=== PATIENT | male | born 1955 | race Caucasian/White ===

== ENCOUNTER 2023-12-18 16:19 | Emergency (ER) | payer OTHER ==
[2023-12-18 16:55] LABS: Bilirubin Negative (Negative); Blood, Urine Trace (Negative); Clarity Clear (Clear); Glucose, Urine (Dipstick) Negative (Negative); Ketone, Urine Negative (Negative); Leukocyte Negative (Negative); Nitrite Negative (Negative); Protein, Urine (Dipstick) Negative (Neg-Trace); Urobilinogen 0.2 mg/dL (Less than 2)
[2023-12-18 17:07] LABS: CAUTI Indications for Culture Dysuria,urgency,freq; RBC/HPF 0-3 HPF (0-3); Urine Culture Reflex No No; WBC/HPF 0-3 HPF (0-3)
[2023-12-18] MEDS ORDERED: Sulfameth/Trimethoprim DS 800-160mg TAB ONE (18:10)
[2023-12-18] MEDS ORDERED: Tamsulosin HCl 0.4 MG CAP ONE (18:10)
== END 2023-12-18 18:20 ==
LOC: NAV ERS 16:19
DX: N41.0 Acute prostatitis (principal); N39.490 Overflow incontinence; J44.9 Chronic obstructive pulmonary disease, unspecified; K21.9 Gastro-esophageal reflux disease without esophagitis; Z79.899 Other long term (current) drug therapy
CPT/HCPCS: 81001; 99283